=== PATIENT | female | born 1955 | race Caucasian/White ===

== ENCOUNTER → 2020-04-22 07:39 | Outpatient (CLI) | payer OTHER, SELFPAY ==
--- NOTE | 2020-04-22 07:43 | MR_ITS ---
PROCEDURE: MR LUMBAR SPINE WO CON CLINICAL INDICATION: BACK PAIN, RADICULOPATHY LBP. TINGLING DOWN LT LEG. [id number]. NO PRIOR. COMPARISON: No exams were available for comparison TECHNIQUE: Standard multiplanar multiecho sequences are performed without contrast. 3-D MIP and myelographic images are also rendered and reviewed FINDINGS: There is a transitional segment at the lumbosacral junction which is labeled as L5. There is normal alignment. The spinal cord ends at T11-T12 L1-L2: Unremarkable. L2-L3: Minimal concentric bulging disc with mild facet ligamentum hypertrophy L3-L4: Mild facet ligamentum hypertrophy L4-5: Minimal bulging disc. 2 mm retrolisthesis of L4. Facet ligamentum hypertrophy with mild bilateral foraminal narrowing L5-S1: Mild degenerative disc disease. Transitional segment is present at this level. Mild sclerosis of the SI joints bilaterally. IMPRESSION: 1. Mild degenerative changes of the lumbar spine as detailed above. No extruded herniated disc or canal stenosis. Please see above for detailed description. 2. Transitional segment at the lumbosacral junction which is labeled as L5. Dictated by: Marcus Poon MD 04/24/2020 09:14 Marcus Poon MD in [place] 04/24/2020 09:14
== END ==
PROVIDERS: PCP Family Medicine; Visit Provider Family Medicine
DX: M54.16 Radiculopathy, lumbar region (principal)
CPT/HCPCS: 72148; 76376